=== PATIENT | female | born 1980 | race African-American/Black ===

== ENCOUNTER 2017-05-06 20:45 | Emergency (ER) | payer OTHER ==
[~2017-05-06] VITALS: Ht 167.6 cm; Wt 113.4 kg
[2017-05-06 21:06] VITALS: BP 112/55
[2017-05-07] MEDS ORDERED: IBUPROFEN 600 MG TAB PO ONE (00:30)
== END 2017-05-07 00:52 | disposition home or self-care (01) ==
LOC: ER 20:45
DX: J32.1 Chronic frontal sinusitis (principal); H61.23 Impacted cerumen, bilateral

== ENCOUNTER 2018-08-24 21:57 | Emergency (ER) | payer OTHER ==
[~2018-08-24] VITALS: Ht 167.6 cm; Wt 117.9 kg
[2018-08-24 22:33] VITALS: BP 137/99
[2018-08-25] MEDS ORDERED: methylPREDNISolone SOD SUCC 125 MG/2 ML VL IM ONE (01:15)
[2018-08-25] MEDS ORDERED: KETOROLAC TROMETH 60MG/2ML VIAL IM ONE (01:15)
[2018-08-25] MEDS ORDERED: IBUPROFEN 800 MG TAB PO ONE (01:30)
== END 2018-08-25 01:40 | disposition home or self-care (01) ==
LOC: ER 22:02
DX: S93.401A Sprain of unspecified ligament of right ankle, initial encounter (principal); W01.0XXA Fall on same level from slipping, tripping and stumbling without subsequent striking against object, initial encounter; Y93.89 Activity, other specified; Y92.89 Other specified places as the place of occurrence of the external cause; Y99.8 Other external cause status
CPT/HCPCS: 73600

== ENCOUNTER 2020-12-12 20:24 | Emergency (ER) | payer OTHER ==
[~2020-12-12] VITALS: Ht 167.6 cm; Wt 106.6 kg
[2020-12-12 20:38] VITALS: BP 118/91
== END 2020-12-12 22:32 | disposition left against medical advice (07) ==
LOC: ER 20:24
DX: Z04.1 Encounter for examination and observation following transport accident (principal); R06.02 Shortness of breath; Z53.21 Procedure and treatment not carried out due to patient leaving prior to being seen by health care provider
CPT/HCPCS: 93005

== ENCOUNTER 2020-12-14 03:17 | Emergency (ER) | payer OTHER ==
[~2020-12-14] VITALS: Ht 170.2 cm; Wt 108.9 kg
[2020-12-14] MEDS ORDERED: ONDANSETRON HCL 4 MG/2 ML VIAL IV ONE (07:45)
[2020-12-14] MEDS ORDERED: KETOROLAC TROMETH 30 MG/ML 1ML VIAL IV ONE (07:45)
[2020-12-14] MEDS ORDERED: SODIUM CHLORIDE 0.9% 1,000 ML IV ONE (07:45)
[2020-12-14] MEDS ORDERED: SODIUM CHLORIDE 0.9% 500 ML IV ONE (07:45)
[2020-12-14 08:25] LABS: Basophils # (auto) 0 10 ^3/uL (0-0.2); Eosinophils # (auto) 0.2 10 ^3/uL (0-0.8); Eosinophils % (auto) 3.8 % (0.0-7.0); Lymphocytes # (auto) 1.4 10 ^3/uL (0.4-5.4); Monocytes # (auto) 0.5 10 ^3/uL (0-1.3)
[2020-12-14 08:27] LABS: Basophils % (auto) 0.6 % (0.0-2.0); Hemoglobin 11.3 g/dL (12.2-16.2); Lymphocytes % (auto) 28.8 % (10.0-50.0); Mean Corpuscular Hgb Conc. 32.4 g/dL (32.0-36.0); Mean Corpuscular Volume 80.2 fL (80.0-100.0); Monocytes % (auto) 9.6 % (0.0-12.0); Neutrophils # (auto) 2.9 10 ^3/uL (1.6-8.6); Neutrophils % (auto) 57.2 % (37.0-80.0); Platelet Count (auto) 264 10^3/uL (140-450); Red Blood Cells 4.36 10^6/uL (4.0-5.20); Red Cell Distribution Width 16.1 % (11.8-14.3)
[2020-12-14 08:45] LABS: Potassium 4.1 mmol/L (3.5-5.1)
[2020-12-14 08:54] LABS: Albumin 3.1 g/dL (3.4-5.0); BUN/Creatinine Ratio 17.7; Bilirubin, Total 0.2 mg/dL (0.2-1.0); Calcium 8.2 mg/dL (8.5-10.1); Magnesium 2.3 mg/dL (1.6-2.6)
[2020-12-14 09:46] VITALS: BP 113/72
== END 2020-12-14 10:20 | disposition home or self-care (01) ==
LOC: ER 03:17
DX: S39.012A Strain of muscle, fascia and tendon of lower back, initial encounter (principal); S20.211A Contusion of right front wall of thorax, initial encounter; S00.81XA Abrasion of other part of head, initial encounter; R07.9 Chest pain, unspecified; M62.830 Muscle spasm of back; Z98.51 Tubal ligation status; V43.62XA Car passenger injured in collision with other type car in traffic accident, initial encounter; Y93.89 Activity, other specified; Y92.488 Other paved roadways as the place of occurrence of the external cause; Y99.8 Other external cause status
CPT/HCPCS: 36415; 71046; 72040; 72100; 80053; 83735; 85025; 93005; 96361; 96374; 96375; 99285; J1885; J2405; J7030

== ENCOUNTER 2025-08-03 18:03 | Emergency (ER) | payer OTHER ==
[~2025-08-03] VITALS: Ht 167.6 cm; Wt 114.2 kg
[2025-08-03 18:06] VITALS: BP 139/93; RESP 20; TEMP 98.2; O2SAT 100
[2025-08-03 18:45] LABS: Hemoglobin 11.6 g/dL (12.2-16.2); Mean Corpuscular Volume 77.0 fL (80.0-100.0); Nucleated Red Blood Cells % 0.1 %
[2025-08-03 18:46] LABS: Hematocrit 35.6 % (36.0-46.0); Mean Corpuscular Hemoglobin 25.2 pg (28.0-32.0)
[2025-08-03 18:52] LABS: Chloride 104 mmol/L (98-107); Potassium 4.2 mmol/L (3.5-5.1); Sodium 141 mmol/L (136-145)
[2025-08-03 18:54] LABS: Calcium 9.7 mg/dL (8.7-10.4)
[2025-08-03 18:58] LABS: Glucose 94 mg/dL (74-106)
[2025-08-03 18:59] LABS: BUN/Creatinine Ratio 15.0 (10.0-20.0); Blood Urea Nitrogen 18 mg/dL (9-23)
[2025-08-03 19:08] LABS: Anion Gap 10 (5-15); Carbon Dioxide 27 mmol/L (20-31)
[2025-08-03 19:10] VITALS: PULSE 106
--- NOTE | 2025-08-03 19:18 | ED.PDOC ---
HPI Comments HPI: Poor Historian. 44-year-old female presents to emergency department for evaluation of 1 hour of midsternal chest pain nonradiating constant while at rest. Patient states she is having some anxiety as well. As noted in triage. Patient states that she has been having some pain with swallowing in her upper throat for the last two months but this is not why she came to the ER today. Her main complaint today is her chest discomfort. Past Medical History: Anxiety attacks, marijuana abuse, vaping Past Surgical History: Tonsillectomy, Denies family history of coronary artery disease REVIEW OF SYSTEMS: CONSTITUTIONAL: Denies acute: fever, diaphoresis, chills, generalized weakness. HEAD: Denies acute: headache, photophobia Eyes: Denies acute: Double vision, vision loss, eye pain, eye discharge. EARS: Denies acute: tinnitus, hearing loss, ear discharge, ear pain, THROAT: Denies acute: sore throat, swelling, difficulty swallowing , pain with swallowing, change in voice. NECK: Denies acute: neck pain, neck swelling, stiff neck. HEART: Denies acute : , palpitations, LUNGS: Denies acute: SOB, wheezing, cough, hemoptysis ABDOMEN: Denies acute: abdominal pain, Nausea, Vomiting, diarrhea, melena , hematemesis, hematochezia SKIN: Denies acute: rash, redness, lesions, itchiness. EXTREMITIES: Denies acute: calf pain, numbness, tingling, weakness, denies pain in extremity. Denies acute: Low back pain. Neuro: Denies acute: focal neurological deficit, motor or sensory focal neurological deficit, tremors, seizure like activity, confusion, dizziness, change in mental status, loss of bowel or bladder function, cauda equina like symptoms. : Denies acute: dysuria, hematuria, flank pain, increase in urinary frequency. PSYCH: Denies acute: hallucination, suicidal ideation, homicidal ideation. FEMALE: Denies acute: abnormal vaginal bleeding, foul odor, unusual discharge. PHYSICAL EXAM: General: -----mild---acute distress, awake and alert. Head: normocephalic, atraumatic. No raccoon's eyes, no acosta sign. Neck: supple, trachea is midline, no swelling. Throat: Normal phonation. Eyes:, no erythema, no purulent discharge, no proptosis, no icterus. Heart: regular rate, regular rhythm, no significant murmur appreciated. Lungs: no apparent respiratory distress, Able to speak in full sentences. No wheezing, no rhonchi, no crackles. No stridors Clear to auscultation bilaterally. Abdomen: non tender to palpation, non distended, soft, no guarding, no rebound, + bowel sounds. Obese Neuro: Awake, Alert, oriented to name, self, situation, follows commands GCS=15. Speech is normal. Skin: no petechia, no purpura, no cyanosis, non-pale, not jaundice. Lower extremities: --no - Pitting edema no deformity, no focal swelling, no calf TTP. Makes eye contact. moves all four extremities. Face: no apparent facial droop. Ambulating in the ED independently. ED COURSE: DISCLAIMER: This medical document was created using an electronic medical record system with voice recognition software and computerized dictation system. Although this document has been carefully reviewed, there might still be some phonetic and typographical errors. Occasional wrong-word or "sound-alike" substitutions may have occurred due to the inherent limitations of voice recognition software. Th marlon areas are purely typographical due to imperfections of the software programs and do not reflect any compromise in the patient's medical care. Please read the chart carefully and recognize, using context, where these substitutions have occurred. Chief Complaint: Chest Pain Time Seen by MD: 18:29 Primary Care Provider: NONE Reviewed Notes: Allergies Allergies: Coded Allergies: NO KNOWN ALLERGIES (Unverified , 01/29/16) Information Source: Patient Mode of Arrival: Ambulatory Past Medical History PAST MEDICAL HISTORY: Anxiety, Depression Surgical History: BTL, , Tonsillectomy, Tubal Ligation WEIGHT TESTER History: No Pertinent WEIGHT TESTER History Family History Family History: Reviewed,noncontributory to illness Social History Smoker: Non-Smoker Alcohol: Denies ETOH Use Drugs: Denies Drug Use Lives In: Home Was a procedure done? Was a procedure done?: No CP Differential Dx Differential Diagnosis: N/A Differential Diagnosis: Other (Ddx include but not limitied to gastritis, musculoskeletal pain, radiculopathy, atypical chest pain, dissection, aneurysm, ACS, unstable angina, hiatal hernia, GERD, anxiety, costochondritis, PE, pneumothroax, neoplasm, cardiac ischemia, drug abuse, anemia.) X-Ray, Labs, Meds, VS Vital Signs Date Time Temp Pulse Resp B/P (MAP) Pulse Ox O2 Delivery O2 Flow Rate FiO2 08/03/25 19:10 106 08/03/25 18:15 101 08/03/25 18:06 98.2 103 20 139/93 100 98.2 Lab Test 08/03/25 19:45 08/03/25 18:18 Range/Units Troponin I High Sensitivity < 3 L < 3 L </=34 ng/L White Blood Count 6.8 4.4-10.8 10^3/uL Red Blood Count 4.62 4.0-5.20 10^6/uL Hemoglobin 11.6 L 12.2-16.2 g/dL Hematocrit 35.6 L 36.0-46.0 % Mean Corpuscular Volume 77.0 L 80.0-100.0 fL Mean Corpuscular Hemoglobin 25.2 L 28.0-32.0 pg Mean Corpuscular Hemoglobin Concent 32.7 32.0-36.0 g/dL Red Cell Distribution Width 17.6 H 11.8-14.3 % Platelet Count 376 140-450 10^3/uL Mean Platelet Volume 7.9 6.9-10.8 fL Neutrophils (%) (Auto) 59.5 37.0-80.0 % Lymphocytes (%) (Auto) 24.8 10.0-50.0 % Monocytes (%) (Auto) 9.6 0.0-12.0 % Eosinophils (%) (Auto) 5.4 0.0-7.0 % Basophils (%) (Auto) 0.7 0.0-2.0 % Neutrophils # (Auto) 4.1 1.6-8.6 10 ^3/uL Lymphocytes # (Auto) 1.7 0.4-5.4 10 ^3/uL Monocytes # (Auto) 0.7 0-1.3 10 ^3/uL Eosinophils # (Auto) 0.4 0-0.8 10 ^3/uL Basophils # (Auto) 0 0-0.2 10 ^3/uL Nucleated Red Blood Cells 0.1 % Sodium Level 141 136-145 mmol/L Potassium Level 4.2 3.5-5.1 mmol/L Chloride Level 104 98-107 mmol/L Carbon Dioxide Level 27 20-31 mmol/L Anion Gap 10 5-15 Blood Urea Nitrogen 18 9-23 mg/dL Creatinine 1.20 H 0.550-1.02 mg/dL Glomerular Filtration Rate Calc 58 >90 mL/min BUN/Creatinine Ratio 15.0 10.0-20.0 Serum Glucose 94 74-106 mg/dL Calcium Level 9.7 8.7-10.4 mg/dL Time of 1ST Reevaluation: 00:00 Reevaluation 1ST: Patient Education/Counseling: Other Family Education/Counseling: No Family Present Comments Patient eloped MDM: patient presented with the above HPI.--cardiac----workup was initiated. patient was found with the above mentioned diagnosis. the following medications were ordered: please refer to order lists of meds and tests obtained by myself Dr. Pugh. Patient ED course and VS have been stabilized. Departure 1 Departure Time of Disposition: 19:17 Impression: Primary Impression: Chest pain Additional Impression: Eloped from emergency department Disposition: 07 LEFT AWOL/ELOPED Condition: Other Additional Instructions: Patient eloped Critical Care Note Critical Care Time?: No Heart Score Heart Score: Heart Score Response (Comments) Value History Slightly Suspicious 0 EKG Normal 0 Age <45 0 Risk Factors 1 or 2 risk factors 1 Troponin Normal limit 0 Total 1 TANMAY PUGH DO Aug 03, 2025 19:18
--- NOTE | 2025-08-06 06:39 | ECG ---
[facility] Test Date: 2025-08-03 Test Time: 18:15:37 Pat Name: SAVANNAH SOLORIO Department: Room: Gender: F Manufacturing Plant Technician: SENDY : 1980 Requested By: MICHAEL MORAN Order Number: [id number] Reading MD: Robert Dunaway Measurements Intervals [place] Rate: 101 P: 71 DE: 117 QRS: 81 QRSD: 92 T: 41 QT: 352 QTc: 457 Interpretive Statements Sinus tachycardia Electronically Signed On 08-09-2025 19:01:58 PST by Robert Dunaway Please click the below link to view image of tracing.
--- NOTE | 2025-08-07 12:29 | ECG ---
[facility] Test Date: 2025-08-03 Test Time: 19:10:23 Pat Name: SAVANNAH SOLORIO Department: Room: Gender: F Shipping Coordinator: NELSON : 1980 Requested By: MICHAEL MORAN Order Number: [id number] Reading MD: Robert Dunaway Measurements Intervals [place] Rate: 106 P: 70 TN: 116 QRS: 80 QRSD: 88 T: 7 QT: 329 QTc: 437 Interpretive Statements Sinus tachycardia Electronically Signed On 08-09-2025 19:02:30 PST by Robert Dunaway Please click the below link to view image of tracing.
== END 2025-08-03 23:32 | disposition left against medical advice (07) ==
LOC: ER 18:03
DX: R07.2 Precordial pain (principal); F41.9 Anxiety disorder, unspecified; F32.A Depression, unspecified; Z98.51 Tubal ligation status; Z90.89 Acquired absence of other organs; Z98.890 Other specified postprocedural states
CPT/HCPCS: 36415; 80048; 84484; 85025; 93005